=== PATIENT | female | born 2005 | race African-American/Black ===

== ENCOUNTER 2025-05-21 07:03 | Outpatient (CLI) | payer OTHER | END 2025-05-21 07:10 | disposition home or self-care (01) | LOC: RAD 07:03 | PROVIDERS: ATTEND Orthopaedic Surgery | DX: S90.31XA Contusion of right foot, initial encounter (principal) ==

== ENCOUNTER 2025-06-18 07:03 | Outpatient (CLI) | payer OTHER | END 2025-06-18 07:07 | disposition home or self-care (01) | LOC: RAD 07:03 | PROVIDERS: ATTEND Orthopaedic Surgery | DX: S92.331A Displaced fracture of third metatarsal bone, right foot, initial encounter for closed fracture (principal) ==

== ENCOUNTER 2025-07-23 07:11 | Outpatient (CLI) | payer OTHER | END 2025-07-23 07:17 | disposition home or self-care (01) | LOC: RAD 07:11 | PROVIDERS: ATTEND Orthopaedic Surgery | DX: S92.331A Displaced fracture of third metatarsal bone, right foot, initial encounter for closed fracture (principal) ==